=== PATIENT | female | born 1995 | race Caucasian/White ===

== ENCOUNTER 2022-01-21 23:02 | Emergency (ER) | payer SELFPAY ==
[~2022-01-21] VITALS: Ht 1676.4 cm; Wt 54.4 kg
--- NOTE | 2022-01-21 23:17 | NUR ---
After being triaged in the hallway on [facility], patient is waiting for bed availability due to no beds available in the ER at this time.
--- NOTE | 2022-01-22 | NUR ---
Patient placed in [facility] due to no beds available in the ER
[2022-01-22 00:22] LABS: MEAN CORPUSCULAR HEMOGLOBIN 30.4 uug (24.7-32.8); MEAN CORPUSCULAR VOLUME 87.4 fL (75.5-95.3); PLATELET COUNT (AUTO) 193 K/uL (179-408)
[2022-01-22 01:10] LABS: CREATININE 0.9 mg/dL (0.6-1.3); POTASSIUM 3.6 mmol/L (3.5-5.1)
[2022-01-22 01:17] LABS: BILIRUBIN,DIRECT 0.1 mg/dL (0.0-0.2); BILIRUBIN,TOTAL 0.3 mg/dL (0.2-1.0)
[2022-01-22 02:14] LABS: *BILIRUBIN,URIN NEGATIVE (NEGATIVE); *CLARITY,URINE CLEAR (CLEAR); *COLOR,URINE YELLOW (YELLOW); *KETONES,URINE 1+ (NEGATIVE); *UROBILINOGEN,URINE 0.2 E.U./dl (NORMAL); LEUKOCYTE ESTERASE ,URINE NEGATIVE (NEGATIVE); NITRITE, URINE NEGATIVE (NEGATIVE); PH,URINE 5.5 (5.0-8.0); UGLUCOSE NEGATIVE (NEGATIVE)
[2022-01-22 02:17] LABS: *BLOOD, URINE TRACE (NEGATIVE)
[2022-01-22 02:31] LABS: RBC,URINE 0-3 /HPF (0-3); WBC,URINE 0-3 /HPF (0-3)
[2022-01-22 02:32] LABS: BACTERIA,URINE NONE SEEN /HPF (NONE SEEN); SQUAMOUS EPITHELIAL CELL,UR FEW /HPF (NONE SEEN)
[2022-01-22 02:42] LABS: *URINE HCG, QUAL NEGATIVE (NEGATIVE)
[2022-01-22] MEDS ORDERED: D-ME473S63 PO (02:53)
[2022-01-22] MEDS ORDERED: OSEL75CA PO (02:53)
--- NOTE | 2022-01-22 03:27 | NUR ---
IV removed. Catheter intact and site benign. Pressure and 4x4 gauze applied to site. No bleeding noted.
[2022-01-22] MEDS ORDERED: ACETAMINOPHEN ES 500 MG TABLET ONE (03:28)
[2022-01-22] MEDS ORDERED: ACETAMINOPHEN ES 500 MG TABLET PO ONE (03:30)
--- NOTE | 2022-01-22 03:35 | NUR ---
Patient discharged to home in stable condition with family taking patient home. Written and verbal after care instructions given. Patient verbalizes understanding of instructions. Stressed follow up or return to ER for worsening s/s.
[2022-01-22 04:42] VITALS: BP 100/60
== END 2022-01-22 03:30 | disposition home or self-care (01) ==
LOC: ER 23:06
DX: J10.1 Influenza due to other identified influenza virus with other respiratory manifestations (principal); Z20.822 Contact with and (suspected) exposure to COVID-19; R55 Syncope and collapse; R00.0 Tachycardia, unspecified
CPT/HCPCS: 36415; 84703; 85025; 87400; 93005; A9150